=== PATIENT | female | born 1980 | race Caucasian/White ===

== ENCOUNTER 2020-02-01 05:00 | Inpatient (IN) | payer OTHER, SELFPAY ==
[2020-02-01] VITALS (11 sets, daily range): BP systolic 142–163; BP diastolic 93–105; PULSE 88–104; RESP 16–18; TEMP 36.2–37.1; O2SAT 97–100; BMI 31.2
--- NOTE | 2020-02-01 06:01 | CT_ITS ---
EXAMINATION: CT ABDOMEN AND PELVIS WITH CONTRAST CLINICAL INFORMATION: Right lower quadrant pain COMPARISON: None TECHNIQUE: Multidetector volumetric images were obtained from the superior aspect of the liver through the pubic symphysis following administration 85 mL of Omnipaque 350 intravenous contrast. Sagittal and coronal reformatted images were obtained on the technologist's workstation. Oral contrast: No This CT examination was performed using dose optimization techniques as appropriate, variously including the following: *Automated exposure control *Adjustment of mA and/or kV according to patient size (this includes techniques or standardized protocols for targeted exams where dose is matched to indication/reason for exam; i.e. extremities or head) *Use of iterative reconstruction technique DLP: 761 mGy-cm FINDINGS: LUNG BASES: The visualized lung bases are unremarkable. LIVER, GALLBLADDER, AND BILIARY TREE: Liver is normal in appearance demonstrating normal size and capsular contour. Cholecystectomy clips are identified. No parotid duct dilatation is visualized. A possible orphaned cholecystectomy clip is noted within the hepatosplenic recess. A possible orphaned clip is noted along the left lateral aspect of the omentum. PANCREAS: Unremarkable. SPLEEN: Unremarkable. ADRENAL GLANDS: Unremarkable. KIDNEYS AND URETERS: The kidneys are normal in size, shape, and attenuation. No hydronephrosis, hydroureter, or calculi seen. No perinephric stranding. BLADDER: Unremarkable. GASTROINTESTINAL TRACT: The appendix is diffusely dilated measuring 11 mm in diameter (series 6 image 53, series 3 image 63). Mild reticulation of the mesoappendix fat is identified. No periappendiceal fluid collections are visualized. Trace dependent low density free intraperitoneal fluid is present within the pelvis. No appendicolith is identified. The appendix is projected medially from the base of the cecum. The terminal ileum is normal in appearance (series 3 image 55). No free intraperitoneal gas is identified. ABDOMINAL WALL: No significant hernia is appreciated. LYMPH NODES: Normal. VASCULAR: Unremarkable. PELVIC VISCERA: Uterus is present in an anteverted configuration. No adnexal lesions are identified. OSSEOUS STRUCTURES: Mild intervertebral disc space narrowing is present at L5-S1 and partial visualization is made of mild posterior broad-based disc bulges at L4-L5 and L5-S1. IMPRESSION: 1. Findings consistent with acute appendicitis. The appendix measures 11 mm in diameter, above normal limits of size and is projected medially from the base of the cecum. No evidence of appendiceal perforation. Normal terminal ileum. Normal kidneys without evidence of urolithiasis. No adnexal lesions identified. Trace, physiologic free intraperitoneal fluid dependently within the pelvis. No periappendiceal fluid collections. 2. Partially visualized mild-moderate posterior broad-based disc bulges at L4-L5 and L5-S1. 3. Status post cholecystectomy.
[2020-02-01 06:09] LABS: MANUAL DIFF FLAG NO
[2020-02-01 06:10] LABS: Basophils Percent Auto 0.5 % (0-2); Eosinophils Absolute Auto 0.1 X10*3/uL (0.0-0.4); Eosinophils Percent Auto 1.2 % (0-4); Hemoglobin 13.3 g/dl (12.0-16.0); Imm Gran Abs Auto 0.01 X10*3/uL (0.00-0.03); Imm Gran Pct Auto 0.2 % (0.0-0.4); Lymphocytes Absolute Auto 2.2 X10*3/uL (1.2-4.9); Lymphocytes Percent Auto 36.2 % (20-40); Mean Corpuscular HGB Conc 33.3 g/dl (31.0-35.0); Mean Corpuscular Volume 87.3 fL (80-98); Mean Platelet Volume 8.8 fL (9.4-12.3); Monocytes Absolute Auto 0.5 X10*3/uL (0.1-1.2); Monocytes Percent Auto 7.8 % (2-11); Neutrophils Absolute Auto 3.3 X10*3/uL (2.0-8.3); Neutrophils Percent Auto 54.1 % (45-73); Platelet Count 377 X10*3/uL (160-400); Red Blood Count 4.58 X10*6/uL (4.20-5.50); Red Cell Distribution Width 12.6 % (11.0-16.0)
[2020-02-01 06:13] LABS: Appearance Urine CLEAR; Color Urine YELLOW; Glucose Urine UA NEG (NEG); Leukocyte Esterase Urine NEG (NEG); Nitrite Urine NEG (NEG); PH 5.5 (5.0-8.0); Specific Gravity - Urine 1.025 (1.005-1.025); UACC Culture Trigger NO; Urine Blood NEG (NEG); Urine Ketones NEG (NEG); Urine Protein NEG (NEG-TRACE)
[2020-02-01 06:15] LABS: UPreg QC Valid YES; Urine Pregnancy NEGATIVE (NEGATIVE)
--- NOTE | 2020-02-01 06:16 | PC.NURSE ---
PT COMING IN FROM HOME FOR LOWER ABDOMINAL PAIN X 2 DAYS AFTER HAVING A BOWEL MOVEMENT. PT STATES THAT SHE IS TENDER IN THE RLQ. HX OF GALLBLADDER REMOVAL HAS APPENDIX. PT LINED AND LABBED, URINE SENT. PLAN FOR CT SCAN WITH CONTRAST
[2020-02-01 06:33] LABS: Alanine Aminotransferase 13 U/L (0-31); Alkaline Phosphatase 82 U/L (39-117); Anion Gap 13 (12-20); Aspartate Amino Transferase 11 U/L (5-31); Bilirubin Total 0.3 mg/dL (0.0-1.0); Blood Urea Nitrogen 12 mg/dL (9-16); Calcium 9.2 mg/dL (8.4-10.2); Carbon Dioxide 26 mmol/L (22-29); Chloride 102 mmol/L (96-108); Creatinine Clr Calc Pharmacy 87.6; Estimated Glomerular Filt Rate > 60; Glucose Random 118 mg/dL (60-115); Potassium 3.9 mmol/l (3.3-5.1); Sodium 137 mmol/L (135-145); Total Protein 6.6 g/dL (6.5-8.0)
--- NOTE | 2020-02-01 06:53 | ED_ITS ---
HPI - Abdominal Pain General Chief Complaint: Abdominal Pain Stated Complaint: ABDOMINAL PAIN Time Seen by Provider: 02/01/20 05:55 Source: patient Mode of arrival: ambulatory Limitations: no limitations History of Present Illness HPI narrative: patient comes to emergency room complaining of right lower quadrant pain. Patient states it has been ongoing for 2 days. Patient states it started out as a bilateral quadrant pain, worse after a bowel movement 2 days ago, today she became more concerned about the abdominal pain and came to the ED. Patient denies vomiting or diarrhea. Related Data Allergies Allergy/AdvReac Type Severity Reaction Status Date / Time acetaminophen [From Vicodin] Allergy Unknown Verified 02/01/20 05:11 ampicillin Allergy Unknown Verified 02/01/20 05:11 hydrocodone [From Vicodin] Allergy Unknown Verified 02/01/20 05:11 hydroxyzine [From Atarax] Allergy Unknown Verified 02/01/20 05:11 Review of Systems Review of Systems Constitutional : No Weight loss, No Fever, No Chills, No Night Sweats, No Fatigue, No Malaise ENT/Mouth : No Hearing loss, No Ear Pain, No Nasal Congestion, No Sinus Pain, No Hoarseness, No sore throat, No Rhinorrhea, No Swallowing Difficulty Eyes: No Eye Pain, No Swelling, No Redness, No Foreign Body, No Discharge, No Vision Changes Cardiovascular : No Chest Pain, No SOB, No Dyspnea on Exertion, No Orthopnea, No Edema, No Palpitations Respiratory : No Cough, No Sputum, No Wheezing, No Smoke Exposure, No Dyspnea Gastrointestinal : No Nausea, No Vomiting, No Diarrhea, No Constipation, Complaining of right lower quadrant pain Genitourinary : no irregular bleeding, No Dysuria, No Urinary Frequency, No Maximino turia, No Urinary Incontinence, No Urgency, No Flank Pain, No Urinary Flow Changes, No Hesitancy Musculoskeletal : No joint pain, No Myalgias, No Joint Swelling Skin : No Skin Lesions, No rash Neuro : No Weakness, No Numbness, No Paresthesias, No Loss of Consciousness, No Dizziness, No Headache Psych : No Anxiety/Panic, No Depression, No SI/HI/AH/VH, No Social Issues, Heme/Lymph: No Bruising, No Bleeding,No Lymphadenopathy Endocrine : No Polyuria, No Polydipsia, No Temperature Intolerance Physical Exam Vital Signs: Vital Signs: Vital Signs Temp Pulse Resp BP Pulse Ox 02/01/20 05:08 98.8 F 88 18 157/105 H 99 Body Mass Index 31.2 Appearance: Alert. Oriented X3. No acute distress. Eyes: Pupils equal, round and reactive to light. ENT: Pharynx normal. Neck: Normal inspection. Neck supple. No lymph nodes noted. No crepitus CVS: Normal heart rate and rhythm. Pulses normal. Normal S1 and S2 Respiratory: No respiratory distress. Breath sounds normal. No Wheezing. No rales Abdomen: Soft , tender to palpation in the right lower quadrant, minor pain left lower quadrant. No rigidity. No distention. good BS x4 Skin: Skin warm and dry. Normal skin color. Normal skin turgor. Extremities: No lower extremity edema. No lower extremity edema. No Lacerations. No Rash Neuro: Oriented X 3. No motor deficit. No sensory deficit. Moving all extermities. No slurred speech. Course Course Course Narrative: patient's labs are pending and CT scan is pending. sign-out given to Dr. Manuel. MDM - Abdominal Pain Lab Data Result diagrams: 02/01/20 05:58 02/01/20 05:58 Labs: Lab Results 02/01/20 02/01/20 02/01/20 Range/Units 05:58 05:58 05:58 WBC 6.0 (4.8-10.8) X10*3/uL RBC 4.58 (4.20-5.50) X10*6/uL Hgb 13.3 (12.0-16.0) g/dl Hct 40.0 (37-47) % MCV 87.3 (80-98) fL MCH 29.0 (27.0-33.0) pg MCHC 33.3 (31.0-35.0) g/dl RDW 12.6 (11.0-16.0) % Plt Count 377 (160-400) X10*3/uL MPV 8.8 L (9.4-12.3) fL Immature Gran % (Auto) 0.2 (0.0-0.4) % Neut % (Auto) 54.1 (45-73) % Lymph % (Auto) 36.2 (20-40) % [place] % (Auto) 7.8 (2-11) % Eos % (Auto) 1.2 (0-4) % Baso % (Auto) 0.5 (0-2) % Lymph # (Auto) 2.2 (1.2-4.9) X10*3/uL [place] # (Auto) 0.5 (0.1-1.2) X10*3/uL Eos # (Auto) 0.1 (0.0-0.4) X10*3/uL Baso # (Auto) 0.0 (0.0-0.2) X10*3/uL Abs Immat Gran (auto) 0.01 (0.00-0.03) X10*3/uL Absolute Neuts (auto) 3.3 (2.0-8.3) X10*3/uL Absolute Nucleated RBC 0.000 (0.0-0.012) X10*3/uL Nucleated RBC % (auto) 0.0 (0.0-0.2) /100WBC Hold Blue Top SEE NOTE Sodium (135-145) mmol/L Potassium (3.3-5.1) mmol/l Chloride (96-108) mmol/L Carbon Dioxide (22-29) mmol/L Anion Gap (12-20) BUN (9-16) mg/dL Creatinine (0.5-1.4) mg/dL Estim Creat Clear Calc Estimated GFR Random Glucose (60-115) mg/dL Calcium (8.4-10.2) mg/dL Total Bilirubin (0.0-1.0) mg/dL AST (5-31) U/L ALT (0-31) U/L Alkaline Phosphatase (39-117) U/L Total Protein (6.5-8.0) g/dL Albumin (3.5-5.0) g/dL Urine Color YELLOW Urine Appearance CLEAR Urine pH 5.5 (5.0-8.0) Ur Specific [place] 1.025 (1.005-1.025) Urine Protein NEG (NEG-TRACE) MG/DL Urine Glucose (UA) NEG (NEG) MG/DL Urine Ketones NEG (NEG) MG/DL Urine Blood NEG (NEG) Urine Nitrite NEG (NEG) Ur Leukocyte Esterase NEG (NEG) Urine Test (NEGATIVE) 02/01/20 02/01/20 Range/Units 05:58 05:58 WBC (4.8-10.8) X10*3/uL RBC (4.20-5.50) X10*6/uL Hgb (12.0-16.0) g/dl Hct (37-47) % MCV (80-98) fL MCH (27.0-33.0) pg MCHC (31.0-35.0) g/dl RDW (11.0-16.0) % Plt Count (160-400) X10*3/uL MPV (9.4-12.3) fL Immature Gran % (Auto) (0.0-0.4) % Neut % (Auto) (45-73) % Lymph % (Auto) (20-40) % [place] % (Auto) (2-11) % Eos % (Auto) (0-4) % Baso % (Auto) (0-2) % Lymph # (Auto) (1.2-4.9) X10*3/uL [place] # (Auto) (0.1-1.2) X10*3/uL Eos # (Auto) (0.0-0.4) X10*3/uL Baso # (Auto) (0.0-0.2) X10*3/uL Abs Immat Gran (auto) (0.00-0.03) X10*3/uL Absolute Neuts (auto) (2.0-8.3) X10*3/uL Absolute Nucleated RBC (0.0-0.012) X10*3/uL Nucleated RBC % (auto) (0.0-0.2) /100WBC Hold Blue Top Sodium 137 (135-145) mmol/L Potassium 3.9 (3.3-5.1) mmol/l Chloride 102 (96-108) mmol/L Carbon Dioxide 26 (22-29) mmol/L Anion Gap 13 (12-20) BUN 12 (9-16) mg/dL Creatinine 0.83 (0.5-1.4) mg/dL Estim Creat Clear Calc 87.6 Estimated GFR > 60 Random Glucose 118 H (60-115) mg/dL Calcium 9.2 (8.4-10.2) mg/dL Total Bilirubin 0.3 (0.0-1.0) mg/dL AST 11 (5-31) U/L ALT 13 (0-31) U/L Alkaline Phosphatase 82 (39-117) U/L Total Protein 6.6 (6.5-8.0) g/dL Albumin 4.0 (3.5-5.0) g/dL Urine Color Urine Appearance Urine pH (5.0-8.0) Ur Specific [place] (1.005-1.025) Urine Protein (NEG-TRACE) MG/DL Urine Glucose (UA) (NEG) MG/DL Urine Ketones (NEG) MG/DL Urine Blood (NEG) Urine Nitrite (NEG) Ur Leukocyte Esterase (NEG) Urine Test NEGATIVE (NEGATIVE) Discharge Plan Discharge Clinical Impression: Abdominal pain PMFSH Past Medical History Medical History No known health problems Social History Social History Alcohol intake: never Smoked in Last 30 Days: No Use of substances other than those prescribed or required for medical reasons: No Any prior treatment program specific to substance use: No Advance Directives: No Advance Directives Information Provided: No
[2020-02-01 08:32] LABS: Alanine Aminotransferase 13 U/L (0-31); Alkaline Phosphatase 82 U/L (39-117); Aspartate Amino Transferase 11 U/L (5-31); Bilirubin Direct < 0.2 mg/dL (0.0-0.5); Bilirubin Total 0.3 mg/dL (0.0-1.0); Total Protein 6.7 g/dL (6.5-8.0)
--- NOTE | 2020-02-01 10:09 | P.HPGS_ITS ---
History of Present Illness History of Present Illness Chief complaint: ABDOMINAL PAIN Narrative: Brenda Yusuf is a 39 year old female who came to the ED this morning for abdominal pain. She says this started about 36 hours ago and has persisted. She says this was mostly diffusely initially but has been on the RLQ since last night. She denies any nausea or vomitting. She denies other GI complaints. She says the pain in not severe but is worse when she presses her abdomen on the right side. She denies having any similar episodes in the past. She denies recent travel. Her medical history is signficant for severe anxiety and depression. She says she was admitted to a Psych unit as an inpatient last year for suicidal ideations. Review of Systems Constitutional: Constitutional: Denies chills and Denies fever(s) Cardiovascular: Cardiovascular: Denies chest pain, Denies dyspnea and Denies dyspnea on exertion Respiratory: Respiratory: Denies cough, Denies dyspnea and Denies dyspnea on exertion Gastrointestinal: Gastrointestinal: Denies hematochezia and Denies change in bowel habits Genitourinary: Genitourinary: Reports hematuria and Denies difficulty voiding Musculoskeletal: Musculoskeletal: Denies back pain and Denies limited range of motion Neurologic: Denies focal weakness and Denies convulsions Psychiatric: Psychiatric: Reports depression and Reports panic attacks PMFSH Past Medical History Medical History No known health problems Social History Social History Alcohol intake: never Smoked in Last 30 Days: No Use of substances other than those prescribed or required for medical reasons: No Any prior treatment program specific to substance use: No Advance Directives: No Advance Directives Information Provided: No Meds Allergies Allergy/AdvReac Type Severity Reaction Status Date / Time acetaminophen [From Vicodin] Allergy Unknown Verified 02/01/20 05:11 ampicillin Allergy Unknown Verified 02/01/20 05:11 hydrocodone [From Vicodin] Allergy Unknown Verified 02/01/20 05:11 hydroxyzine [From Atarax] Allergy Unknown Verified 02/01/20 05:11 Physical Exam Vital Signs: Vital Signs: Vital Signs Temp Pulse Resp BP Pulse Ox 02/01/20 07:15 98.7 F 88 16 142/93 H 100 02/01/20 05:08 98.8 F 88 18 157/105 H 99 Body Mass Index 31.2 Const: Other: very anxious and emotional General: comfortable Orientation/consciousness: patient oriented x3 Neck: Neck: Yes no lymphadenopathy Resp: Auscultation: clear to auscultation bilaterally Cardio: Rhythm: regular rhythm GI: Palpation (GI): Soft to palpation, Tenderness to palpation present (GI) (on RLQ) and no guarding Neuro: General: patient oriented x3 Results Results Labs: Short CBC 02/01/20 Range/Units 05:58 WBC 6.0 (4.8-10.8) X10*3/uL Hgb 13.3 (12.0-16.0) g/dl Hct 40.0 (37-47) % Plt Count 377 (160-400) X10*3/uL BMP 02/01/20 05:58 Sodium 137 Potassium 3.9 Chloride 102 Carbon Dioxide 26 BUN 12 Creatinine 0.83 Calcium 9.2 Liver Function 02/01/20 02/01/20 Range/Units 05:58 05:58 Total Bilirubin 0.3 0.3 (0.0-1.0) mg/dL Direct Bilirubin < 0.2 (0.0-0.5) mg/dL AST 11 11 (5-31) U/L ALT 13 13 (0-31) U/L Alkaline Phosphatase 82 82 (39-117) U/L Albumin 4.0 4.0 (3.5-5.0) g/dL Urine 02/01/20 02/01/20 Range/Units 05:58 05:58 Urine Color YELLOW Urine Appearance CLEAR Urine pH 5.5 (5.0-8.0) Ur Specific [place] 1.025 (1.005-1.025) Urine Protein NEG (NEG-TRACE) MG/DL Urine Glucose (UA) NEG (NEG) MG/DL Urine Test NEGATIVE (NEGATIVE) Abdomen CT scan report/results: report reviewed and image reviewed Additional studies: Laboratory Results WBC 6.0 X10*3/uL (4.8-10.8) 02/01/20 05:58 RBC 4.58 X10*6/uL (4.20-5.50) 02/01/20 05:58 Hgb 13.3 g/dl (12.0-16.0) 02/01/20 05:58 Hct 40.0 % (37-47) 02/01/20 05:58 MCV 87.3 fL (80-98) 02/01/20 05:58 MCH 29.0 pg (27.0-33.0) 02/01/20 05:58 MCHC 33.3 g/dl (31.0-35.0) 02/01/20 05:58 RDW 12.6 % (11.0-16.0) 02/01/20 05:58 Plt Count 377 X10*3/uL (160-400) 02/01/20 05:58 MPV 8.8 fL (9.4-12.3) L 02/01/20 05:58 Immature Gran % (Auto) 0.2 % (0.0-0.4) 02/01/20 05:58 Neut % (Auto) 54.1 % (45-73) 02/01/20 05:58 Lymph % (Auto) 36.2 % (20-40) 02/01/20 05:58 [place] % (Auto) 7.8 % (2-11) 02/01/20 05:58 Eos % (Auto) 1.2 % (0-4) 02/01/20 05:58 Baso % (Auto) 0.5 % (0-2) 02/01/20 05:58 Lymph # (Auto) 2.2 X10*3/uL (1.2-4.9) 02/01/20 05:58 [place] # (Auto) 0.5 X10*3/uL (0.1-1.2) 02/01/20 05:58 Eos # (Auto) 0.1 X10*3/uL (0.0-0.4) 02/01/20 05:58 Baso # (Auto) 0.0 X10*3/uL (0.0-0.2) 02/01/20 05:58 Abs Immat Gran (auto) 0.01 X10*3/uL (0.00-0.03) 02/01/20 05:58 Absolute Neuts (auto) 3.3 X10*3/uL (2.0-8.3) 02/01/20 05:58 Absolute Nucleated RBC 0.000 X10*3/uL (0.0-0.012) 02/01/20 05:58 Nucleated RBC % (auto) 0.0 /100WBC (0.0-0.2) 02/01/20 05:58 Hold Blue Top SEE NOTE 02/01/20 05:58 Sodium 137 mmol/L (135-145) 02/01/20 05:58 Potassium 3.9 mmol/l (3.3-5.1) 02/01/20 05:58 Chloride 102 mmol/L (96-108) 02/01/20 05:58 Carbon Dioxide 26 mmol/L (22-29) 02/01/20 05:58 Anion Gap 13 (12-20) 02/01/20 05:58 BUN 12 mg/dL (9-16) 02/01/20 05:58 Creatinine 0.83 mg/dL (0.5-1.4) 02/01/20 05:58 Estim Creat Clear Calc 87.6 02/01/20 05:58 Estimated GFR > 60 02/01/20 05:58 Random Glucose 118 mg/dL (60-115) H 02/01/20 05:58 Calcium 9.2 mg/dL (8.4-10.2) 02/01/20 05:58 Total Bilirubin 0.3 mg/dL (0.0-1.0) 02/01/20 05:58 Total Bilirubin 0.3 mg/dL (0.0-1.0) 02/01/20 05:58 Direct Bilirubin < 0.2 mg/dL (0.0-0.5) 02/01/20 05:58 AST 11 U/L (5-31) 02/01/20 05:58 AST 11 U/L (5-31) 02/01/20 05:58 ALT 13 U/L (0-31) 02/01/20 05:58 ALT 13 U/L (0-31) 02/01/20 05:58 Alkaline Phosphatase 82 U/L (39-117) 02/01/20 05:58 Alkaline Phosphatase 82 U/L (39-117) 02/01/20 05:58 Total Protein 6.6 g/dL (6.5-8.0) 02/01/20 05:58 Total Protein 6.7 g/dL (6.5-8.0) 02/01/20 05:58 Albumin 4.0 g/dL (3.5-5.0) 02/01/20 05:58 Albumin 4.0 g/dL (3.5-5.0) 02/01/20 05:58 Urine Color YELLOW 02/01/20 05:58 Urine Appearance CLEAR 02/01/20 05:58 Urine pH 5.5 (5.0-8.0) 02/01/20 05:58 Ur Specific [place] 1.025 (1.005-1.025) 02/01/20 05:58 Urine Protein NEG MG/DL (NEG-TRACE) 02/01/20 05:58 Urine Glucose (UA) NEG MG/DL (NEG) 02/01/20 05:58 Urine Ketones NEG MG/DL (NEG) 02/01/20 05:58 Urine Blood NEG (NEG) 02/01/20 05:58 Urine Nitrite NEG (NEG) 02/01/20 05:58 Ur Leukocyte Esterase NEG (NEG) 02/01/20 05:58 Urine Test NEGATIVE (NEGATIVE) 02/01/20 05:58 Assessment and Plan (1) Acute appendicitis: Qualifiers: Acute appendicitis type: with localized peritonitis Appendicitis abscess presence: without abscess Appendicitis gangrene presence: without gangrene Appendicitis perforation presence: without perforation Qualified Code(s): K35.30 - Acute appendicitis with localized peritonitis, without perforation or gangrene Status: Acute She has RLQ pain and her CT scan shows a dilated appendix c/w acute appendicitis. She does not have leukocytosis but is tender on the RLQ. I therefore explained to her the technique of laparoscopic appendectomy and possible open appendectomy. I reviewed the risks incuding but not limited to bleeding, injury to bowel, infections, obstruction, inherent risks of anesthesia, blood clots, as well as the benefits and alternatives. She was aware of the option of nonoperative treatment with IV abx abd says she wants to pro ceed with laparoscopic appendectomy. I have reviewed her CT with the radiologist. Her fiance Baltazar Alves was with her during the discussion.
--- NOTE | 2020-02-01 11:15 | HO.ANESPROP2 ---
HPI - Anesthesia Eval Consult details Narrative: Abdominal pain. Acute appendicitis with localized peritonitis. For laparoscopic appendectomy, possible open PMFSH Past Medical History Medical History (Updated 02/01/20 @ 10:16 by Dennis Guido MD) Anxiety Depression No known health problems Cognitive capacity: Awake, alert, oriented Functional capacity: independent ambulation Family History Family history of problems with anesthesia: No Surgical History Surgical History (Updated 02/01/20 @ 11:28 by Cindi Mahmood) History of ovarian cystectomy Hx laparoscopic cholecystectomy History of Problems with Anesthesia: Yes (Slow awakening with gall bladder surgery) Social History Social History Alcohol intake: never Smoking Status: Never smoker Smoked in Last 30 Days: No Second Hand Smoke Exposure: No Use of substances other than those prescribed or required for medical reasons: No Any prior treatment program specific to substance use: No Advance Directives: No Advance Directives Information Provided: No Meds Allergies Allergy/AdvReac Type Severity Reaction Status Date / Time acetaminophen [From Vicodin] Allergy Patient Verified 02/01/20 11:31 denies allergy to acetaminophen ampicillin Allergy Unknown Verified 02/01/20 05:11 hydrocodone [From Vicodin] Allergy Unknown Verified 02/01/20 05:11 hydroxyzine [From Atarax] Allergy Unknown Verified 02/01/20 05:11 Exam Exam Date and Time: February 01, 2020 1115 Height,Weight and Vital Signs: Height 5 ft 2 in Weight 77.467 kg Last Vital Signs Vital Signs Temp Pulse Resp BP Pulse Ox 02/01/20 11:14 97.1 F 94 16 151/96 H 99 02/01/20 07:15 98.7 F 88 16 142/93 H 100 02/01/20 05:08 98.8 F 88 18 157/105 H 99 Temp 98.7 F 02/01/20 07:15 Pulse 88 02/01/20 07:15 Resp 16 02/01/20 07:15 BP 142/93 H 02/01/20 07:15 Pulse Ox 100 02/01/20 07:15 Pertinent Lab Results Pertinent Lab Results: Laboratory Tests 02/01/20 02/01/20 02/01/20 05:58 05:58 05:58 WBC 6.0 RBC 4.58 Hgb 13.3 Hct 40.0 MCV 87.3 MCH 29.0 MCHC 33.3 RDW 12.6 Plt Count 377 MPV 8.8 L Immature Gran % (Auto) 0.2 Neut % (Auto) 54.1 Lymph % (Auto) 36.2 [place] % (Auto) 7.8 Eos % (Auto) 1.2 Baso % (Auto) 0.5 Lymph # (Auto) 2.2 [place] # (Auto) 0.5 Eos # (Auto) 0.1 Baso # (Auto) 0.0 Abs Immat Gran (auto) 0.01 Absolute Neuts (auto) 3.3 Absolute Nucleated RBC 0.000 Nucleated RBC % (auto) 0.0 Hold Blue Top SEE NOTE Sodium Potassium Chloride Carbon Dioxide Anion Gap BUN Creatinine Estim Creat Clear Calc Estimated GFR Random Glucose Calcium Total Bilirubin Direct Bilirubin AST ALT Alkaline Phosphatase Total Protein Albumin Urine Color YELLOW Urine Appearance CLEAR Urine pH 5.5 Ur Specific [place] 1.025 Urine Protein NEG Urine Glucose (UA) NEG Urine Ketones NEG Urine Blood NEG Urine Nitrite NEG Ur Leukocyte Esterase NEG Urine Test 02/01/20 02/01/20 02/01/20 05:58 05:58 05:58 WBC RBC Hgb Hct MCV MCH MCHC RDW Plt Count MPV Immature Gran % (Auto) Neut % (Auto) Lymph % (Auto) [place] % (Auto) Eos % (Auto) Baso % (Auto) Lymph # (Auto) [place] # (Auto) Eos # (Auto) Baso # (Auto) Abs Immat Gran (auto) Absolute Neuts (auto) Absolute Nucleated RBC Nucleated RBC % (auto) Hold Blue Top Sodium 137 Potassium 3.9 Chloride 102 Carbon Dioxide 26 Anion Gap 13 BUN 12 Creatinine 0.83 Estim Creat Clear Calc 87.6 Estimated GFR > 60 Random Glucose 118 H Calcium 9.2 Total Bilirubin 0.3 0.3 Direct Bilirubin < 0.2 AST 11 11 ALT 13 13 Alkaline Phosphatase 82 82 Total Protein 6.6 6.7 Albumin 4.0 4.0 Urine Color Urine Appearance Urine pH Ur Specific [place] Urine Protein Urine Glucose (UA) Urine Ketones Urine Blood Urine Nitrite Ur Leukocyte Esterase Urine Test NEGATIVE Airway Mallampati Class: II TM Dist: >3cm Neck ROM: Full Loose/Missing/Broken Teeth: No Heart: RRR Lungs: CTAB Assessment and Plan Assessment Anesthesia Assessment: Anesthesia Plan Discussed and Chart Reviewed Final Anesthetic Review NPO: Yes ASA Class: II Final Preanesthetic Review: No Changes in Pt Med Stat, Meds/Allgs Chart Reviewed, Consent Obtained/Reviewed and Anes Risks/Benef Reviewed Patient Risk: Low Procedure Risk: Intermediate Anesthetic Plan Anesthetic Plan: GA Disposition: Standard PACU
[2020-02-01] MEDS: Lactated Ringers 1,000 ML 100 ML IVCONT (11:28)
--- NOTE | 2020-02-01 12:15 | MHC.SHP ---
Pre-Procedural Eval Section B Chief Complaint: ABDOMINAL PAIN Allergies: Allergies Allergy/AdvReac Type Severity Reaction Status Date / Time acetaminophen [From Vicodin] Allergy Patient Verified 02/01/20 11:31 denies allergy to acetaminophen ampicillin Allergy Unknown Verified 02/01/20 05:11 hydrocodone [From Vicodin] Allergy Unknown Verified 02/01/20 05:11 hydroxyzine [From Atarax] Allergy Unknown Verified 02/01/20 05:11 Plan Patient has been examined and remains a candidate for the planned procedure
--- NOTE | 2020-02-01 13:15 | P.BOP_ITS ---
Brief Operative Note Date of procedure: 02/01/20 Pre-op diagnosis: acute appendicitis Post-op diagnosis: same Procedure: laparoscopic appendectomy Implants: None Surgeon: ALEM OLSON MD Anesthesia: RENA [employer] Avionics Technician: Annette Ramires Estimated blood loss (mL): 10 Pathology: other (appendix) Condition: stable Disposition: PACU
[2020-02-01] MEDS: Ketorolac Tromethamine 30 MG/ML VIAL IVPUSH (13:43)
[2020-02-01] MEDS: Morphine Sulfate 2 MG/ML CARTRIDGE IVPUSH (13:50)
[2020-02-01] MEDS: Lactated Ringers 1,000 ML 80 ML IVCONT (13:59)
--- NOTE | 2020-02-01 15:40 | PC.NURSE ---
1430 Band aid dsgs intact on abd. abd soft. VSS
--- NOTE | 2020-02-01 17:13 | PM.EVENT ---
Event Note Event Note: underwent uneventful laparoscopic appendectomy earlier says she is comfortable good pain control she wants to go home stable VS abd soft looks well ok to dc home when tolerating dinner dc instructions given ffup in 2 weeks in office
--- NOTE | 2020-02-01 21:54 | OP_ITS ---
SURGEON: Dennis Guido MD INDICATIONS: The patient is a 39-year-old female, who came to the emergency room this morning because of right lower quadrant pain. She had a CAT scan, which I had reviewed with radiologist showing findings c/w acute appendicitis with dilated appendix. She wanted to proceed with appendectomy. She understood technique of laparoscopic appendectomy and possible open appendectomy. She was aware of the risks, benefits, and alternatives. PREOPERATIVE DIAGNOSIS: Acute appendicitis. POSTOPERATIVE DIAGNOSIS: Acute appendicitis. PROCEDURE PERFORMED: Laparoscopic appendectomy. ESTIMATED BLOOD LOSS: COMPLICATIONS: ANESTHESIA: ASSISTANTS: Annette Ramires PA-C. SPECIMENS: DESCRIPTION OF PROCEDURE: She was brought to the operating room and placed supine on the table under general anesthesia via endotracheal tube. A Cooper catheter was inserted. The abdomen was prepped and draped in usual sterile fashion. A surgical time-out was done. The patient received Cefotan 2 g IV preoperatively. A short infraumbilical incision was made in the skin using blade #15, it was carried down to full-thickness skin and subcutaneous fat with blunt dissection down to the fascia. The fascia was exposed the incised. The peritoneum was entered and through this incision, a Gopi port was introduced. Pneumoperitoneum was introduced to a pressure of 15 mmHg. From here on, the rest of procedure was done under vision with the 10 mm laparoscope. With laparoscopic visualization, I inserted 5 mm ports in the left lower quadrant as well as the suprapubic margin via small stab incisions. The patient was placed in a head-down and rpee-tlrv-yeet position. Graspers were placed through the working ports. We reflected the small bowel loops away from the right lower quadrant and this appendix was immediately seen. The appendix was dilated and mildly congested. I gently applied a grasper at its mid part of the appendix to put this on stretch. By doing so, I was able to visualize the base of the appendix. I proceeded to use a [place] dissector to carefully dissect out the mesentery at the base to create a mesenteric defect. I then switched to 5 mm port and this was placed through one of the left lower quadrant ports. I used an Endo-SERENE 30 mm stapler through the Gopi port and this was applied across the base. This was fired and the appendix was therefore transected. There was note of a small strand of the wall, which was not divided, so I proceeded to apply another 30 mm stapler through this to completely divide the entire appendix. I then used a LigaSure to divide across the mesoappendix. We continued to keep the appendix retracted toward the abdominal wall to put the mesoappendix on stretch. I applied the LigaSure serially until the entire mesoappendix was completely transected. The appendix therefore and it was retrieved through an Endobag through the umbilical incision. We removed all ports and re-insufflated. I examined the all four quadrants and there was no evidence of any bowel injury or any other pathology. I examined the staple line. This appeared intact and there was note of good hemostasis. Again, I examined the entire abdominal cavity and the bowel loops appeared intact without any injury. I therefore removed all ports under vision with the laparoscope. The Gopi port was removed last. The fascia of the umbilical incision was closed with jaywxl-kw-[id number] Dexon 0 stitch. Skin closure was achieved in all incisions using Dexon 4-0 subcuticular running sutures. Steri-Strips and dressings were applied. All incisions were infiltrated with Marcaine 0.5% for postop analgesia. The procedure was completed. The patient tolerated the procedure well. There were no complications noted. Initial and final counts of sponges and instruments were correct. Estimated blood loss was minimal. The patient was extubated without difficulty in the operating room and transferred to recovery room with stable vital signs. MD JESIKA Veliz/WILBER / [id number] JANIE
--- NOTE | 2020-02-06 14:14 | PM.DS ---
DS: Providers Provider Date of admission: 02/01/20 11:20 Primary care physician: Matthew Hanna MD DS: Diagnosis Discharge Diagnosis (1) Acute appendicitis: Status: Acute DS: Summary Hospital Course Hospital Course: Brief HPI: Brenda Yusuf is a 39 year old female who came to the ED this morning for abdominal pain. She says this started about 36 hours ago and has persisted. She says this was mostly diffusely initially but has been on the RLQ since last night. She denies any nausea or vomitting. She denies other GI complaints. She says the pain in not severe but is worse when she presses her abdomen on the right side. She denies having any similar episodes in the past. She denies recent travel. Her medical history is signficant for severe anxiety and depression. She says she was admitted to a Psych unit as an inpatient last year for suicidal ideations. CT scan showed a dilated appendix consistent with acute appendicitis. The patient was admitted to the surgical service for further treatment of the acute appendicitis. It was recommended to proceed with a laparoscopic possible open appendectomy. She elected to proceed. She was added onto the OR schedule. On 02/01/20, a laparoscopic appendectomy was performed by Dr. Dennis Guido without complication. The patient tolerated the procedure well and was admitted to the medical/surgical floor for observation. She was reassessed later that day and felt well. Her pain was controlled and she was comfortable. She was tolerating her diet. She felt ready for discharge and was discharged to home on 02/01/20 in stable condition. Status at Discharge Functional status at discharge: independent ambulation Overall status at discharge: patient is progressing back to baseline Time Spent with Patient Time attestation: Total time spent providing and/or coordinating discharge services: Physical Exam Vital Signs: Vital Signs: Body Mass Index 31.2 Const: General: comfortable, no acute distress and alert Orientation/consciousness: patient oriented x3 Resp: Effort & Inspection: normal respiratory effort GI: Inspection: Yes incision (dressings intact) Palpation (GI): Soft to palpation, Tenderness to palpation present (GI) (mild, incisional), no guarding, not rigid and No Rebound tenderness present Skin: General skin exam: no rashes or lesions noted Neuro: General: patient oriented x3 Extrem: General: Yes no clubbing, cyanosis or edema DS: Data Data Completed and Pending Completed studies during hospitalization [Text1]: Procedures Resection of Appendix, Percutaneous Endoscopic Approach (02/01/20) Pending studies at discharge: Pending at discharge 02/01/20 12:54 Surgical [PTH] Routine Discharge Plan Discharge Patient Disposition: Home, Self-Care Referrals: Matthew Hanna MD [Primary Care Provider] - Dennis Guido MD [Physician] - 2 Weeks Discharge Medications: New oxycodone 5 mg tablet 5 mg PO Q4H PRN (Reason: pain) Qty: 20 RF: 0 Discharge Orders: Discharge Order (Routine); Ordered 02/01/20 Ordered By: Dennis Guido Activity on Discharge: No heavy lifting Patient Instructions: Laparoscopic Appendectomy (GEN) Discharge Date/Time: 02/01/20 18:17 Activity Restrictions/Additional Instructions: If the incision area is tender, you may apply an ice pack for short intervals (No more than 20 minutes on, followed by at least 20 minutes off). Do not apply heat. Do not use creams, lotions, or topical antibiotics unless instructed to do so by your surgeon. These can cause infection or allergic reaction. Ok to shower 02/03/20. Remove bandaids prior. You have steri strips (white cloth strips) on your incision- these will fall off ~1 week. Call Your Doctor If: -Your temperature exceeds 101.5? F -You experience excessive pain or swelling -You have an unexpected reaction to medication -You have excessive bleeding -You experience continued vomiting/nausea -Your incision begins to separate -Your incision shows signs of infection such as increased redness, swelling, excessive pain, drainage (light blood or clear fluid is normal) or heat Visit Report Forms: Patient Portal Discharge page, [facility] Instructions Care Plan Goals: ffup in office Health Concerns: ffup in office Plan of Treatment: ffup in office in 2-3 weeks
== END 2020-02-01 18:17 | disposition home or self-care (01) | DRG 343 ==
LOC: HO.ED 09:14 → HO.SSS 11:48 → HO.S3 13:30
PROVIDERS: Emergency Medicine; Admitting Provider Surgery; Emergency Provider Emergency Medicine; PCP Specialist; Visit Provider Surgery
PROC: 0DTJ4ZZ Resection of Appendix, Percutaneous Endoscopic Approach (ICD-10-PCS; CPT 44970; principal; 2020-02-01 12:00)
DX: K35.30 Acute appendicitis with localized peritonitis, without perforation or gangrene (principal); F32.9 Major depressive disorder, single episode, unspecified; F41.9 Anxiety disorder, unspecified; Z88.5 Allergy status to narcotic agent; Z88.6 Allergy status to analgesic agent
CPT/HCPCS: 36415; 74177; 80053; 80076; 81003; 81025; 85025; 88304; 99285; J1100; J1885; J2250; J2270; J2405; J3010

== ENCOUNTER → 2020-02-14 14:30 | Outpatient (BNVA) | payer OTHER, SELFPAY | PROVIDERS: PCP Specialist; Visit Provider Surgery | DX: Z76.89 Persons encountering health services in other specified circumstances (principal) ==

== ENCOUNTER → 2020-03-07 13:35 | Outpatient (BNVA) | payer OTHER, SELFPAY | PROVIDERS: PCP Specialist; Referring Provider Specialist; Visit Provider Surgery | DX: Z76.89 Persons encountering health services in other specified circumstances (principal) ==

== ENCOUNTER 2020-04-26 08:55 | Day surgery (SDC) | payer OTHER, SELFPAY ==
[2020-04-18 13:27] VITALS: BMI 32.8
--- NOTE | 2020-04-26 09:47 | HO.ANESPROP2 ---
[facility] Past Medical History Medical History Acute appendicitis Anxiety Depression Low grade mucinous neoplasm of appendix No known health problems Surgical History Surgical History History of ovarian cystectomy Hx laparoscopic cholecystectomy Hx of appendectomy Social History Social History Alcohol intake: never Smoking Status: Never smoker Second Hand Smoke Exposure: No Advance Directives: No Advance Directives Information Provided: Yes Meds Allergies Allergy/AdvReac Type Severity Reaction Status Date / Time acetaminophen [From Vicodin] Allergy Severe Vomiting Verified 04/26/20 09:52 hydrocodone [From Vicodin] Allergy Severe Vomiting Verified 04/26/20 09:52 shellfish derived Allergy Mild hives, Verified 04/26/20 09:52 SOB, throat swelling ampicillin Allergy Unknown Verified 04/26/20 09:52 hydroxyzine [From Atarax] Allergy Unknown Verified 04/26/20 09:52 Home Medications Medication Instructions Recorded Confirmed Type clonazepam 0.5 mg tablet 0.5 mg PO BID PRN 02/14/20 History norethindrone 1.5 mg-ethinyl 1 tab PO DAILY 02/14/20 History estradiol 30 mcg(21)/iron 75 mg(7) tablet venlafaxine 150 mg See Rx Instructions PO .COMPLEX 02/14/20 History capsule,extended release 24 hr cap norethindrone 1.5 mg-ethinyl 1 tab PO DAILY 03/07/20 History estradiol 30 mcg(21)/iron 75 mg(7) tablet Exam Exam Date and Time: April 26, 2020 0947 Height,Weight and Vital Signs: Height 5 ft 3 in Weight 83.915 kg Airway Mallampati Class: II TM Dist: >3cm Neck ROM: Full Loose/Missing/Broken Teeth: No Heart: RRR Lungs: CTA Assessment and Plan Assessment Anesthesia Assessment: Anesthesia Plan Discussed and Chart Reviewed Final Anesthetic Review NPO: Yes ASA Class: II Final Preanesthetic Review: Meds/Allgs Chart Reviewed, Consent Obtained/Reviewed and Anes Risks/Benef Reviewed Patient Risk: Low Procedure Risk: Low Anesthetic Plan Anesthetic Plan: MAC: Disposition: Standard PACU
[2020-04-26 09:48] LABS: UPreg QC Valid YES; Urine Pregnancy NEGATIVE (NEGATIVE)
--- NOTE | 2020-04-26 09:48 | MHC.SHP ---
Pre-Procedural Eval Section B Chief Complaint: Low Grade Mucinous Neoplasm of Appendix Details of Present Illness: had appendectomy in 2019 -path report showed low grade mucinous neoplasm Relevant Family History (Specify if Yes): No Relevant Social History: None Present Medications: see Short Stay Collaborative assessment Medical History: Significant History (anxiety depression) History of Previous Operations: Relevant previous surgery/procedure and date(s) (appendectomy Jan 2020) Allergies: Allergies Allergy/AdvReac Type Severity Reaction Status Date / Time acetaminophen [From Vicodin] Allergy Severe Vomiting Verified 03/07/20 13:50 hydrocodone [From Vicodin] Allergy Severe Vomiting Verified 03/07/20 13:50 shellfish derived Allergy Mild hives, Verified 03/07/20 13:50 SOB, throat swelling ampicillin Allergy Unknown Verified 02/14/20 14:41 hydroxyzine [From Atarax] Allergy Unknown Verified 02/14/20 14:41 Review of Systems Sugical H&P ROS: Negative: Constitution, Cardiovascular, Respiratory, Neurological, Psychiatric, Hem-Onc, Allergic/Immunologic, Gastrointestinal, Genitourinary, Musculoskeletal, Integumentary, Endocrine and Eyes/Ears/Nose/Throat Exam Surgical H&P Exam: Normal: HEENT, Normal: Heart, Normal: Lungs, Normal: Extremities, Normal: Abdomen, Normal: Skin and Normal: Neurological Plan Diagnosis/Plan: Unchanged I have reviewed the history and physical and performed a pertinent physical examination on my patient. No changes have occurred unless specified.
[2020-04-26 09:52] VITALS: BP 148/94; PULSE 95; RESP 16; TEMP 36.7; O2SAT 99; BMI 30.1
[2020-04-26] MEDS: Lactated Ringers 1,000 ML 50 ML IVCONT (10:00)
[2020-04-26 10:33] VITALS: BP 126/87; PULSE 104; RESP 12; TEMP 36.3; O2SAT 100
--- NOTE | 2020-04-26 10:33 | PM.OP ---
Brief Operative Note Date of Service: 04/26/20 Pre-op diagnosis: hx of lowgrade mucinous neoplasm of the appendix Post-op diagnosis: same Procedure: colonoscopy Surgeon: Dennis Guido MD Anesthesia: MAC Estimated blood loss (mL): 0 Pathology: none sent Condition: stable Disposition: PACU
[2020-04-26 10:47] VITALS: BP 139/95; PULSE 93; RESP 16; TEMP 36.3; O2SAT 100
--- NOTE | 2020-04-26 11:22 | HO.POSTANES ---
Post Anesthesia Evaluation Post Anesthesia Evaluation Vital Signs: Vital Signs Temp Pulse Resp BP Pulse Ox 04/26/20 10:47 97.4 F 93 16 139/95 H 100 04/26/20 10:33 97.4 F 104 H 12 126/87 100 04/26/20 09:52 98.1 F 95 16 148/94 H 99 Anesthesia: Monitored Mental Status: Awake Pain Control: Satisfactory Nausea/Vomiting: None Hydration: Adequate Anesthesia-Related Issues: No Anes. Related Issues
--- NOTE | 2020-04-26 11:29 | OP_ITS ---
SURGEON: Dennis Guido MD INDICATIONS: The patient is a 39-year-old female, who had undergone laparoscopic appendectomy last January 2020, and was noted to have incidental finding of low-grade mucinous neoplasm of the appendix with negative margins. I therefore explained to her it would be best to proceed with colonoscopy to examine the cecum. She understood the technique of the procedure. She was aware of the risks, benefits, and alternatives. PREOPERATIVE DIAGNOSIS: History of low-grade mucinous neoplasm of the appendix. POSTOPERATIVE DIAGNOSIS: History of low-grade mucinous neoplasm of the appendix with normal colonoscopy findings. PROCEDURE PERFORMED: Colonoscopy. ESTIMATED BLOOD LOSS: COMPLICATIONS: ANESTHESIA: ASSISTANTS: SPECIMENS: DESCRIPTION OF PROCEDURE: She was brought to the operating room, placed in left lateral decubitus position under monitored anesthesia care. A surgical time-out was done. A full digital rectal was done. There were no palpable anal lesions. The tip of the Olympus colonoscope was introduced gently through the anal orifice and advanced with insufflation all the way to the cecum. The cecum was intubated. The cecum was identified by visualization of the cecal valve as well as appendiceal orifice. The cecal mucosa unremarkable. There were no lesions near the remaining appendiceal orifice. The scope was gradually withdrawn with careful examination of the entire colonic mucosa being done with scope withdrawal. The patient had good bowel prep, so it was unlikely that any lesion may have been missed. The rectum was reached and there were no lesions seen. The anal canal was unremarkable. The scope was then withdrawn completely. The patient tolerated the procedure well. There were no complications noted. I probably recommend another colonoscopy within the next 5 to 10 years. However, she will be monitored with CAT scan as an outpatient in view of her history of low-grade mucinous neoplasm. Withdrawal time was about 6 minutes. MD JESIKA Veliz/KYLAHL / [id number]
== END 2020-04-26 11:38 | disposition home or self-care (01) ==
PROVIDERS: Nurse Practitioner; PCP Specialist; Visit Provider Surgery
PROC: 0DJD8ZZ Inspection of Lower Intestinal Tract, Via Natural or Artificial Opening Endoscopic (ICD-10-PCS; CPT 45378; principal; 2020-04-26 10:40)
DX: C18.1 Malignant neoplasm of appendix (principal); Z90.49 Acquired absence of other specified parts of digestive tract; Z88.8 Allergy status to other drugs, medicaments and biological substances; Z88.0 Allergy status to penicillin; F32.9 Major depressive disorder, single episode, unspecified; Z79.899 Other long term (current) drug therapy
CPT/HCPCS: 45378; 81025

== ENCOUNTER → 2020-05-08 10:51 | Outpatient (BNVA) | payer OTHER, SELFPAY | PROVIDERS: PCP Specialist; Referring Provider Specialist; Visit Provider Surgery ==

== ENCOUNTER 2020-08-14 14:59 | Outpatient (REF) | payer OTHER, SELFPAY ==
[2020-08-14 16:30] LABS: Blood Urea Nitrogen 14 mg/dL (9-16); Estimated Glomerular Filt Rate > 60
[2020-08-15 09:26] LABS: CA-125 22 U/mL (<35)
[2020-08-15 12:47] LABS: Carbohydrate Antigen 19-9 20 U/mL (<34)
== END 2020-08-14 15:00 | disposition home or self-care (01) ==
LOC: HO.LAB 14:59
PROVIDERS: PCP Specialist; Visit Provider Surgery
DX: D37.3 Neoplasm of uncertain behavior of appendix (principal); Z88.6 Allergy status to analgesic agent; Z88.1 Allergy status to other antibiotic agents; Z91.013 Allergy to seafood
CPT/HCPCS: 36415; 82378; 82565; 84520; 86301; 86304

== ENCOUNTER 2020-09-02 14:46 | Outpatient (REF) | payer OTHER, SELFPAY ==
--- NOTE | ~2020-09-02 | MR_ITS ---
EXAMINATION: MR PELVIS WITHOUT AND WITH CONTRAST CLINICAL INFORMATION: D37.3 - Neoplasm of uncertain behavior of appendix. Status post appendectomy 2019. Nausea, pain May 2020. COMPARISON: CT abdomen and pelvis with contrast 02/01/2020. TECHNIQUE: MRI of the pelvis is performed without and with use of 8.5 mL Gadavist gadolinium contrast with imaging in 3 planes. Postcontrast images are performed in axial plane. A large uqjzn-oz-tnti noncontrast coronal sequence is also included. FINDINGS: There is no bowel obstruction or focal inflammatory changes seen in the bowel or mesentery. The terminal ileum, cecum, and ascending colon are visible on the large ovhup-ss-bsox noncontrast images and also partly within cxjcx-hd-qftz on coronal pelvic noncontrast images and appear unremarkable. The kidneys are normal in size. There is no hydronephrosis. Bladder nondistended. The uterus is anteverted and measures 8.8 x 4.6 x 5.6 cm. The endometrial thickness is under 5 mm. The junctional zone appears normal. There is a small stable subserous exophytic fibroid left uterine body measuring 1.8 x 1.8 x 2.0 cm. The fibroid is low signal on T2 and enhances similar to the myometrium following contrast. There is also a 0.9 cm intramural fibroid left uterine body which enhances less than myometrium. The ovaries are unremarkable. Left ovary measures 1.8 x 3.4 cm and has a 1.1 cm follicle. The right ovary measures 1.4 x 3.2 cm. No adnexal mass. There is trace fluid in the cul-de-sac. Otherwise no ascites or fluid collection. No peritoneal lesions or abnormal peritoneal enhancement. There is no retroperitoneal, deep pelvic, or inguinal lymphadenopathy. The vasculature are unremarkable. Normal bone marrow signal. MR/MR pelvis wo/w con IMPRESSION: 1. No bowel obstruction or inflammatory changes pelvis. 2. No adenopathy or peritoneal lesions pelvis. 3. Small left uterine fibroids, larger stable exophytic 2.0 x 1.8 cm. 4. No adnexal mass. Trace fluid cul-de-sac.
== END 2020-09-02 14:47 | disposition home or self-care (01) ==
LOC: HO.MRI 14:46
PROVIDERS: Visit Provider Surgery
DX: D37.3 Neoplasm of uncertain behavior of appendix (principal); R11.0 Nausea; R52 Pain, unspecified; Z90.49 Acquired absence of other specified parts of digestive tract
CPT/HCPCS: 72197; A9585

== ENCOUNTER → 2020-09-05 11:27 | Outpatient (BNVA) | payer OTHER, SELFPAY | PROVIDERS: PCP Specialist; Visit Provider Surgery ==

== ENCOUNTER → 2021-07-23 09:29 | Outpatient (BNVA) | payer OTHER, SELFPAY | PROVIDERS: PCP Specialist; Visit Provider Surgery | DX: Z13.89 Encounter for screening for other disorder (principal) ==

== ENCOUNTER 2021-08-20 14:48 | Outpatient (REF) | payer OTHER, SELFPAY ==
--- NOTE | ~2021-08-20 | MR_ITS ---
EXAMINATION: MR PELVIS WITHOUT AND WITH CONTRAST CLINICAL INFORMATION: History of appendiceal neoplasm with appendectomy in 2019. COMPARISON: MR pelvis dated from 09/02/2020. CT abdomen/pelvis dated from 02/01/2020. TECHNIQUE: Multiple routine MRI sequences through the pelvis were obtained before and after the uneventful administration of 9 mL Gadavist gadolinium-based IV contrast. FINDINGS: GASTROINTESTINAL: The imaged portions of the bowel are within normal limits except for mild diverticulosis. UTERUS: Anteverted uterus has a normal configuration and measures 9.3 cm seizhw-vx-viymqo x 4.6 cm anterior-posterior x 6 cm transverse. Normal endometrial thickness, 0.7 cm. The junctional zone is somewhat indistinct and thickened, raising the possibility of adenomyosis. There is redemonstration of multiple homogeneously T2 dark enhancing fibroids some of which are for example, a 1.6 cm subserosal fibroid in the lower anterior uterus (7:21), a 1.3 cm intramural fibroid in the left upper uterus (7:20) and a 1.9 cm subserosal fibroid in the left upper uterus (7:19). These are not significantly changed when compared to August 2020. CERVIX: Normal. VAGINA: Normal; no mass seen. OVARIES: Normal in morphology. There is a homogeneously simple T2 bright avascular 3 cm cyst in the right ovary. There are multiple smaller subcentimeter functional follicles in both ovaries. KIDNEYS: Two normally positioned kidneys are seen. No hydronephrosis. BLADDER: Urinary bladder normal. PELVIC FREE FLUID: No free fluid or ascites. LYMPH NODES: No pathologically enlarged lymph nodes. OSSEOUS STRUCTURES: No acute or suspicious osseous abnormalities. MR/MR pelvis wo/w con IMPRESSION: No evidence of malignancy in the pelvis. Redemonstration of multiple fibroids, some of which are subserosal. Thickening of the junctional zone suggesting adenomyosis.
[2021-08-20 14:35] LABS: Blood Urea Nitrogen 10 mg/dL (9-16); Estimated Glomerular Filt Rate > 60
== END 2021-08-20 14:49 | disposition home or self-care (01) ==
LOC: HO.MRI 14:48
PROVIDERS: Visit Provider Surgery
DX: D37.3 Neoplasm of uncertain behavior of appendix (principal)
CPT/HCPCS: 36415; 72197; 82565; 84520; A9585

== ENCOUNTER → 2021-08-28 13:14 | Outpatient (BNVA) | payer OTHER, SELFPAY | PROVIDERS: PCP Specialist; Visit Provider Surgery | DX: D37.3 Neoplasm of uncertain behavior of appendix (principal) ==

== ENCOUNTER 2023-07-14 22:19 | Emergency (ER) | payer OTHER, SELFPAY ==
[2023-07-14 22:39] VITALS: BP 134/90; PULSE 94; RESP 16; TEMP 36.9; O2SAT 96; BMI 34.8
--- NOTE | 2023-07-15 16:18 | ED.GENADULT ---
HPI - General Adult General Chief complaint: Eye Problems Stated complaint: contact lens stuck in eye History of Present Illness HPI narrative: The patient is a 42-year-old woman who normally wears contact lenses. She was removing her contact lenses and she felt that she was having trouble removing her left contact lens. She went through several maneuvers at home for coming to the emergency room to try to remove her contact lens. This involved a lot of rubbing of her eye. Ultimately the eye became quite irritated and she was not sure of the contact lens was still in the eye or not and she came to the emergency room. Related Data Home Medications Medication Instructions Recorded Confirmed clonazepam 0.5 mg tablet 0.5 mg PO BID PRN Anxiety 02/14/20 07/23/21 norethindrone 1.5 mg-ethinyl 1 tab PO DAILY 02/14/20 07/23/21 estradiol 30 mcg(21)/iron 75 mg(7) tablet venlafaxine 150 mg See Rx Instructions PO .COMPLEX 02/14/20 07/23/21 capsule,extended release 24 hr norethindrone 1.5 mg-ethinyl 1 tab PO DAILY 03/07/20 07/23/21 estradiol 30 mcg(21)/iron 75 mg(7) tablet (Blisovi Fe 1.5/30 (28)) lisinopril 10 mg tablet 10 mg PO DAILY 05/08/20 07/23/21 norethindrone (contraceptive) 0.35 0.35 mg PO DAILY 05/08/20 07/23/21 mg tablet Allergies Allergy/AdvReac Type Severity Reaction Status Date / Time acetaminophen [From Vicodin] Allergy Severe Vomiting Verified 08/28/21 13:44 hydrocodone [From Vicodin] Allergy Severe Vomiting Verified 08/28/21 13:44 shellfish derived Allergy Mild hives, Verified 08/28/21 13:44 SOB, throat swelling ampicillin Allergy Unknown Verified 08/28/21 13:44 hydroxyzine [From Atarax] Allergy Unknown Verified 08/28/21 13:44 Review of Systems Review of Systems: Yes all other systems are reviewed and are negative PMFSH Past Medical History Medical History Acute appendicitis Anxiety Depression Low grade mucinous neoplasm of appendix No known health problems Surgical History History of ovarian cystectomy Hx laparoscopic cholecystectomy Hx of appendectomy Social History Social History Alcohol intake: never Smoked in Last 30 Days: No Second Hand Smoke Exposure: No Use of substances other than those prescribed or required for medical reasons: No Advance Directives: No Advance Directives Information Provided: Yes Patient : No Physical Exam ED Vital Signs: Vital Signs - 24 hr 07/14/23 22:39 Temperature 98.4 F Pulse Rate 94 Respiratory Rate 16 Blood Pressure 134/90 H Pulse Oximetry 96 Oxygen Delivery Method Room Air BMI result Body Mass Index 34.8 Const Other: The patient is awake, alert, pleasant, cooperative. Her left eye looks mildly red. HENMT Other: Face is symmetrical. Mucous membranes moist Eyes Other: Pupils are round, equal and reactive to light, extraocular movements are intact. The right eye and eyelids appears perfectly normal. The left eye shows conjunctival injection. The eyelids are mildly swollen. Blistered tetracaine eyedrops to the left eye with resolution of the patient's discomfort. I administered fluorescein stain to the left eye and re-examined the eye. I was not able to appreciate the presence of a contact lens. I then examined the eye with the slit lamp. I did not appreciate any corneal injuries or any foreign body. The patient will be started on erythromycin ointment. She has both an engineering specialist technician and an chip bin conveyor tender and she is advised to contact her sales support specialist in the morning for another evaluation. She should return to the emergency room if worse. Discharge Plan Discharge Clinical Impression: Conjunctivitis Patient Disposition: Home, Self-Care Prescriptions: No Action clonazepam 0.5 mg tablet 0.5 mg PO BID PRN (Reason: Anxiety) norethindrone-e.estradiol-iron 1.5 mg-30 mcg (21)/75 mg (7) tablet 1 tab PO DAILY venlafaxine 150 mg capsule,extended release 24hr See Rx Instructions PO .COMPLEX Rx Instructions: 300 MG PO; norethindrone-e.estradiol-iron [Blisovi Fe 1.5/30 (28)] 1.5 mg-30 mcg (21)/75 mg (7) tablet 1 tab PO DAILY lisinopril 10 mg tablet 10 mg PO DAILY norethindrone (contraceptive) 0.35 mg tablet 0.35 mg PO DAILY Discharge Date/Time: 07/15/23 02:00
== END 2023-07-15 02:00 | disposition home or self-care (01) ==
PROVIDERS: Emergency Provider Emergency Medicine; PCP Specialist
DX: H10.9 Unspecified conjunctivitis (principal)
CPT/HCPCS: 99282; 99284